=== PATIENT | female | born 1975 | race Caucasian/White ===

== ENCOUNTER → 2017-10-06 17:46 | Outpatient (CLI) | payer OTHER, SELFPAY ==
--- NOTE | 2017-10-06 | XR_ITS ---
XR hand RT min 3V Ordering Physician: Sanjana Tolentino Patient Age: 41 years: Female HISTORY: ITS.REASON: HAND/FINGER PAIN Smashed hand 4 days ago bruising pain 34th digits. TECHNIQUE: 3 views right hand COMPARISON :None FINDINGS Right hand intact with no discrete fracture. No dislocation. Joint spaces are well-maintained. Bones well mineralized. Fingers overall intact. There is a slight lucent line longitudinally at the base middle phalanx middle finger which I favor is a nutrient foramen given its sclerotic margin. Also very subtle lucent Ulnar aspect head of middle phalanx of fourth & fifth finger I believe this is merely a nutrient foramen likely as well...... No definitive fracture. If Pain localized pain at the site persist consider follow-up. Slight ulnar plus Variant noted suggested at the wrist. IMPRESSION: Right hand is intact with no discrete fracture.
== END ==
PROVIDERS: PCP Family Medicine; Visit Provider Family Medicine
DX: M79.641 Pain in right hand (principal); M79.644 Pain in right finger(s)
CPT/HCPCS: 73130

== ENCOUNTER → 2017-12-16 12:39 | Outpatient (CLI) | payer BC, SELFPAY ==
[2017-12-17 15:24] LABS: FSH 18.9 mIU/mL (.)
== END ==
PROVIDERS: Visit Provider Specialist
DX: Z31.41 Encounter for fertility testing (principal)
CPT/HCPCS: 36415; 83001

== ENCOUNTER → 2017-12-23 12:25 | Outpatient (CLI) | payer BC, SELFPAY | PROVIDERS: Visit Provider Specialist | DX: Z31.41 Encounter for fertility testing (principal) | CPT/HCPCS: 36415; 83001 ==

== ENCOUNTER → 2020-02-06 10:18 | Outpatient (CLI) | payer OTHER, SELFPAY ==
--- NOTE | 2020-02-06 10:23 | MM_ITS ---
PROCEDURE: MM DIG SCREENING MAMM BI W/CAD Digital Breast Tomosynthesis Included CLINICAL INDICATION: SCREENING There is no personal or family history of breast cancer. COMPARISON: This is a baseline screening exam, patient without complaints TECHNIQUE: Standard CC and MLO images and 3D Tomosynthesis was obtained. R2 CAD reviewed. FINDINGS: Moderate diffuse fibroglandular densities are seen throughout both breasts and the findings are bilateral and symmetrical. There is no suspicious lesion in either breast and no suspicious microcalcifications.. IMPRESSION: Fibrofatty parenchyma with no suspicious lesions seen BI-RAD Category: 1 Negative FOLLOW-UP: 1YR 1 Year Follow-up (A letter has been sent to the patient regarding results of the study.) Dictated by: Dr. Greg Quezada MD 02/12/2020 10:55 Dr. Greg Quezada MD in [place] 02/12/2020 10:55
== END ==
PROVIDERS: PCP Family Medicine; Visit Provider Family Medicine
DX: Z12.31 Encounter for screening mammogram for malignant neoplasm of breast (principal)
CPT/HCPCS: 77063; 77067

== ENCOUNTER → 2022-03-03 08:23 | Outpatient (POV) | payer OTHER, SELFPAY | PROVIDERS: Visit Provider Dermatology | DX: Z00.00 Encounter for general adult medical examination without abnormal findings (principal) ==

== ENCOUNTER → 2022-03-09 07:51 | Outpatient (CLI) | payer OTHER, SELFPAY ==
--- NOTE | 2022-03-09 07:55 | MM_ITS ---
PROCEDURE INFORMATION: Exam: MG Bilateral Screening 3D Mammography Exam date and time: 03/09/2022 7:56 AM Age: 46 years old Clinical indication: Screening examination TECHNIQUE: Imaging protocol: Bilateral Screening tomosynthesis and 2D mammography including computer-aided detection (CAD) when performed. COMPARISON: MG MM DIG SCREENING MAMM BI W/CAD 02/06/2020 10:37 AM FINDINGS: MAMMOGRAPHY: Breast composition: There are scattered areas of fibroglandular density. Mass: None. Architectural distortion: None. Calcifications: No suspicious calcifications. Asymmetric density: None. Skin thickening: None. Axillary adenopathy: None. IMPRESSION: No mammographic evidence of malignancy. Annual screening is recommended unless otherwise clinically indicated. ASSESSMENT: BI-RADS Category 1: Negative
== END ==
PROVIDERS: PCP Family Medicine; Visit Provider Family Medicine
DX: Z12.31 Encounter for screening mammogram for malignant neoplasm of breast (principal)
CPT/HCPCS: 77063; 77067

== ENCOUNTER 2023-06-22 08:54 | Outpatient (POV) | payer OTHER, SELFPAY | END 2023-06-22 23:59 | disposition home or self-care (01) | LOC: SC 08:55 | PROVIDERS: PCP Family Medicine; Visit Provider Dermatology | DX: Z00.00 Encounter for general adult medical examination without abnormal findings (principal) ==

== ENCOUNTER 2024-02-11 07:02 | Outpatient (CLI) | payer BC, SELFPAY ==
[2024-02-11 07:39] LABS: Basophils # 0.1 K/mm3 (0-0.2); Eosinophils # 0.1 K/mm3 (0.0-0.4); Eosinophils % 2.6 % (0.1-12.0); Hematocrit 42.2 % (37.0-47.0); Hemoglobin 13.9 g/dL (12.2-16.2); Lymphocytes % 38.3 % (10-50); Mean Corpuscular HGB Conc 33.1 g/dL (31.8-35.4); Mean Corpuscular Hemoglobin 30.3 pg (27.0-31.2); Mean Corpuscular Volume 91.6 fl (81-99); Mean Platelet Volume 6.5 fl (7.4-10.4); Monocytes # 0.3 K/mm3 (0.1-1.0); Monocytes % 5.8 % (1.7-9.3); Neutrophils # 2.7 K/mm3 (1.8-7.8); Neutrophils % 52.2 % (37.0-80.0); Platelet Count 284 K/mm3 (142-424); Red Cell Distribution Width 12.3 % (11.5-17.5); White Blood Count 5.1 K/mm3 (4.8-10.8)
[2024-02-11 08:24] LABS: Albumin Level 4.6 g/dl (3.5-5.0); Chloride 101 mmol/L (98-107); Potassium 4.1 mmoL/L (3.5-5.1); Sodium 137 mmol/L (136-145)
[2024-02-11 08:26] LABS: Alanine Aminotransferase 25 U/L (12-78); Anion Gap 11.1 mEq/L (5-15); Aspartate Amino Transferase 21 U/L (14-36); Bilirubin,Unconjugated 0.6 mg/dL (0.0-1.1); Blood Urea Nitrogen 16 mg/dl (7-17); Carbon Dioxide 29 mmol/L (22.0-30.0); Estimated Glomerular Filt Rate 90 ml/min (>60); GFR (African American) 109 ML/MIN (>60)
[2024-02-11 08:27] LABS: Alkaline Phosphatase 51 U/L (38-126); Bilirubin,Direct 0.1 mg/dl (0.0-0.4); Bilirubin,Indirect 0.5 mg/dL (0.0-0.9); Bilirubin,Total 0.6 mg/dl (0.2-1.3); Calcium 9.4 mg/dl (8.4-10.2); Cholesterol 187 mg/dl (140-200); Glucose 92 mg/dl (74-100); HDL Cholesterol 63 mg/dl (40-60); Total Protein,Serum 7.2 g/dl (6.3-8.2); Triglycerides 62 mg/dl (30-150); VLDL Cholesterol 12 mg/dL (0-40)
[2024-02-11 08:39] LABS: Direct LDL Cholesterol 99.13 mg/dL (100-129)
[2024-02-11 08:43] LABS: Free T4 (Free Thyroxine) 0.94 ng/dl (0.78-2.19)
[2024-02-11 08:59] LABS: Thyroid Stimulating Hormone 1.57 uIU/mL (0.465-4.68)
== END 2024-02-11 23:59 | disposition home or self-care (01) ==
LOC: LAB 07:04
PROVIDERS: PCP Family Medicine; Visit Provider Nurse Practitioner
DX: R06.09 Other forms of dyspnea (principal); R07.89 Other chest pain; Z82.49 Family history of ischemic heart disease and other diseases of the circulatory system
CPT/HCPCS: 36415; 80048; 80061; 80076; 84439; 84443; 85025

== ENCOUNTER 2024-02-21 06:58 | Outpatient (CLI) | payer BC, SELFPAY ==
--- NOTE | 2024-02-21 | CA_ITS ---
APPROVED REPORT Exam: Exercise Treadmill Technologist: Monika Christensen, Ht: 5 ft 1 in Wt: 120 lbs BSA: 1.52 m2 HR: 73 bpm BP: 180/107 mmHg Rhythm: NSR Medical History Medications: LaBetalol,,,,, Cardiac Risk Factors: HTN, , FHX of CAD Stress Test Details Test: Fermin HR Resting HR: 78 bpm Max Heart Rate (APMHR): 174 bpm Max HR Achieved: 168 bpm Target HR (85% APMHR): 148 bpm % of APMHR: 97 Recovery HR: 131 bpm HR response to stress: Normal HR response to stress BP Resting BP: 159.0/105.0 mmHg Max BP: 180.0/107.0 mmHg Recovery BP: 159.0/108.0 mmHg BP response to stress: Normal blood pressure response to stress. ECG Resting ECG: NSR Stress EC.[address] depression Arrhythmia: None Recovery ECG: Return to baseline within 3 minutes of recovery Recovery Arrhythmia: None Clinical Exercise duration: 08:19 min Highest Stage Achieved: Exercise capacity: 10.1 METs Overall Exercise Capacity for Age: Average Stress ECG Conclusion During fermin protocol pt experinced SOB with peak exercise. No CP noted. Ectopy: No arrhythmias noted. ST changes: 0.[address] depression Conclusion: Average exercise capacity. No ischemic ECG changes at peak stress. Myoview images are reported separately. Test Summary REST . . . . . . . Sitting REST . . . . . . . Standing REST 10:21 0.0 0.0 78 . 159/105 . . Stage 1 01:00 10.0 1.7 106 . . . . Stage 1 02:00 10.0 1.7 112 . . . . Stage 1 03:00 10.0 1.7 114 . 151/ 98 . . Stage 2 01:00 12.0 2.5 124 . . . . Stage 2 02:00 12.0 2.5 130 . 163/100 . . Stage 2 03:00 12.0 2.5 138 . 163/100 . . Stage 3 01:00 14.0 3.4 151 . . . . Stage 3 02:00 14.0 3.4 165 . . . . Stage 3 02:19 14.0 3.4 168 . . . Stop exercise at 08:19 RECOVERY 01:00 0.0 0.0 135 . . . . RECOVERY 02:00 0.0 0.0 108 . 159/108 . . RECOVERY 03:00 0.0 0.0 96 . 164/107 . . RECOVERY 04:00 0.0 0.0 92 . 160/101 . . RECOVERY 05:00 0.0 0.0 87 . 173/112 . . RECOVERY 05:28 0.0 0.0 104 . 156/108 . . Electronically signed by : Elma Parson MD 02/22/2024 11:53:16
--- NOTE | 2024-02-21 07:01 | NM_ITS ---
APPROVED REPORT Exam: Nuclear Stress Test Indication: Chest pain, Back pain, HTN, Family history Patient Location: Outpatient Stress Tech: Monika GHOSH Tech:Alpa Cuevas, ARRT, RT (R)(N) Ht: 5 ft 1 in Wt: 120 lbs Bra Size: 32A HR: 78 bpm BP: 159/105 mmHg BSA: 1.52 m2 Rhythm: NSR TID: 1.11 BMI: 22.6 History: Chest pain, Back pain, HTN, Family history Procedure: Patient exercised on Blane protocol 8:19 minutes and sec, resting heart rate 78 bpm, resting blood pressure 159/105 mmHg, with exercise maximum heart rate achived was 168 bpm which is 97 % of the maximum predicted heart rate and blood pressure was 180/107 mmHg. Test was stopped due to SOB. Patient has average exercise capacity, achieved 10.1 METs of workload on treadmill, the blood pressure response to exercise was normal. Cardiac Stress and Resting SPECT Images: Cardiac Stress and Resting SPECT images were obtained using technetium 99m Myoview 31.7 mCi stress and 10.79 mCi at rest. Resting and stress imaging in supine and prone positions demonstrate no evidence of fixed or reversible perfusion defects. Gated imaging demonstrates normal global and regional LV systolic function. LVEF is calculated at 61%. Conclusion: No evidence of fixed or reversible perfusion defects. Gated imaging demonstrates normal global and regional LV systolic function. LVEF is calculated at 61%. Electronically signed by : Elma Parson MD 02/22/2024 12:12:44
--- NOTE | 2024-02-21 08:59 | CA_ITS ---
APPROVED REPORT EXAM: Comprehensive 2D, Doppler, and color-flow Echocardiogram Cinder Pit Worker: Ofelia Correa RVT Ht: 5 ft 1 in Wt: 120lbs BSA: 1.52 BP: 137/95 mmHg Indications: CP,BACK PAIN,DYSPENA,HTN 2D Dimensions LA Volume 24.20 mL LA Volume Index 15.92 mL/m2 (M/F) 16-34 M-Mode Dimensions RVDd 2.10 cm (0.9-2.6) LA Diam 2.83 cm (1.9-4.0) LVDd 4.13 cm (3.5-5.7) LVDs 2.70 cm (3.5-5.7) IVSd 0.73 cm (0.6-1.1) PWd 0.73 cm (0.6-1.1) EF (Teich) 64.20% FS 34.60% EDV (Teich) 75.50 mL TAPSE 2.15 (<1.7) ESV (Teich) 27.00 mL LV Diastology E Decel Time 183 (160-240 msec) E/A Ratio 1.4 Aortic Valve EHSAN Index 1.32 cm2/m2 AoV Peak Amandeep. 140.0 (50-130 cm/s) AO Peak GR. 7.90 mmHg AO Mean GR. 4.50 (<5 mmHg) AO VTI 29.0 (18-25 cm) EHSAN (VTI) 2.06 (2.5-4.5 cm2) Mitral Valve MV E Max Amandeep. 107.0 (40-130 cm/s) MV A Velocity 76.0 (40-130 cm/s) E/A Ratio 1.41 MV PHT 54.0 ms Pulmonary Valve PV Peak Velocity 66.0 (50-150 cm/s) Tricuspid Valve TR P. Velocity 118.00 cm/s RAP Estimate 10.00 mmHg RVSP 15.60 mmHg Left Ventricle The left ventricle is normal size. The left ventricular systolic function is normal. The left ventricular ejection fraction is within the normal range. There is increased LV wall thickness. There is normal LV segmental wall motion. The left ventricular diastolic function is normal. LVEF is 55%. Right Ventricle The right ventricle is normal size. The right ventricular systolic function is normal. Atria The left atrium size is normal. The right atrium size is normal. There is no Doppler evidence of interatrial shunt. Aortic Valve The aortic valve opens well. There is no aortic valvular stenosis. No aortic regurgitation is present. Mitral Valve The mitral valve is normal in structure. No evidence of mitral valve stenosis. Trace mitral regurgitation. Tricuspid Valve The tricuspid valve leaflets are thin and pliable. Trace tricuspid regurgitation. There is insufficient TR jet to estimate RVSP. Pulmonic Valve The pulmonary valve is normal in structure. Trace pulmonic regurgitation. Great Vessels The aortic root is normal in size. The ascending aorta is normal in size. IVC is normal in size, collapses < 50% with inspiration. RA pressure is estimated at 8 mmHg. Pericardium There is a small sized, circumferential pericardial effusion present. The largest pocket is noted anteriorly and measures 0.7 cm in diastole. No evidence of chamber collapse. No clear echo indications of tamponade. Other Information Study Quality: Adequate Conclusion Normal biventricular systolic function. No significant valvular stenosis or regurgitation. Small sized, circumferential pericardial effusion present. The largest pocket is noted anteriorly and measures 0.7 cm in diastole. No evidence of chamber collapse. No clear echo indications of tamponade. In the setting of pericardial effusion, evaluation with limited serial TTE's are suggested. Electronically signed by : Elma Parson MD 02/22/2024 11:32:11
[2024-02-21] MEDS: SODIUM CHLORIDE 0.9% 10ML SYR (RAD ONLY) 10 ML IV ×2 (09:00)
[2024-02-21] MEDS: ISOTOPE MYOVIEW (PER STUDY) 1 DOSE IV (09:00)
== END 2024-02-21 23:59 | disposition home or self-care (01) ==
LOC: RAD 06:58
PROVIDERS: PCP Family Medicine; Visit Provider Nurse Practitioner
DX: R06.09 Other forms of dyspnea (principal); R07.89 Other chest pain; Z82.49 Family history of ischemic heart disease and other diseases of the circulatory system
CPT/HCPCS: 78452; 93017; 93018; 93306; A9502

== ENCOUNTER 2024-03-29 07:54 | Outpatient (CLI) | payer BC, SELFPAY ==
--- NOTE | 2024-03-29 07:57 | CA_ITS ---
APPROVED REPORT EXAM: Limited 2D Echocardiogram Director Toxicology: Bailey Solitario CRT Ht: 5 ft 1 in Wt: 120lbs BSA: 1.52 BP: 135/93 mmHg Indications: EF check Other Information Study Quality: Fair Conclusion This is a limited TTE to evaluate for LV systolic function. Limited windows were obtained. The left ventricle is normal in size. There is increased LV wall thickness. There is normal global and regional LV systolic function. LVEF is 55%. When directly compared to prior TTE from 02/2024, the LVEF remains unchanged. Electronically signed by : Elma Parson MD 03/30/2024 01:26:13
== END 2024-03-29 23:59 | disposition home or self-care (01) ==
LOC: RT 07:55
PROVIDERS: PCP Family Medicine; Visit Provider Nurse Practitioner
DX: I31.39 Other pericardial effusion (noninflammatory) (principal)
CPT/HCPCS: 93308